=== PATIENT | female | born 1940 | race Caucasian/White ===

== ENCOUNTER 2017-10-11 15:40 | Emergency (ER) | payer MEDICARE, MEDICAID ==
[~2017-10-11] VITALS: Ht 162.6 cm; Wt 60.0 kg
[2017-10-11] MEDS ORDERED: KETOROLAC 15MG/ML VIAL IM ONE (19:45)
[2017-10-11 20:10] VITALS: BP 182/79
== END 2017-10-11 20:16 | disposition home or self-care (01) ==
LOC: ER 16:13
DX: M19.90 Unspecified osteoarthritis, unspecified site (principal)
CPT/HCPCS: 96372; 99283; J1885